=== PATIENT | female | born 1985 | race Caucasian/White ===

== ENCOUNTER 2017-05-13 21:46 | Emergency (ER) | payer BC ==
[2017-05-13] MEDS ORDERED: NS(*) 0.9% 1000 ML BAG 1,000 ML IV ONE (22:03)
--- NOTE | 2017-05-13 22:03 | ER Report ---
History and Physical Time Seen By MD: 21:56 Hx. of Stated Complaint: Pt reporting abdominal pain, nausea and low grade fever for two days. no tylenol or ibuprofin. HPI/ROS CHIEF COMPLAINT: Abdominal pain HISTORY OF PRESENT ILLNESS: This is a 31-year-old female. She has been having abdominal pain for a couple of days, worse tonight. Worsens with movement. Difficult to tell where it is but seems like mainly in the right lower area. Associated nausea but no vomiting. Normal bowels. No dysuria or urinary changes. Last menstrual period a week ago. She reports low-grade fevers. Loss of appetite. REVIEW OF SYSTEMS: Constitutional: As above. ENT: No sore throat. No congestion. Cardiovascular: No chest pain. No palpitations. Respiratory: No cough. No shortness of breath. Gastrointestinal: As above. Genitourinary: As above. Musculoskeletal: No musculoskeletal pain. Allergies: Coded Allergies: No Known Drug Allergies (Unverified , 05/13/17) Home Meds Active Scripts Ondansetron (ZOFRAN ODT) 4 Mg Tab.rapdis, 4 MG PO Q6H Y for NAUSEA/VOMITING, # 20 TAB.JANES 0 Refills Prov:GABBI JACOBS MD 05/14/17 Hydrocodone Bit/Acetaminophen (HYDROCODON-ACETAMINOPHEN 5-325) 1 Each Tablet, 1 EACH PO Q4H Y for PAIN, #12 TAB 0 Refills Prov:GABBI JACOBS MD 05/14/17 Reported Medications Bupropion Hcl (WELLBUTRIN SR) 200 Mg Tablet.er, 250 MG PO QDAY, TAB 05/13/17 Topiramate (TOPAMAX) 50 Mg Tablet, 50 MG PO BID 05/13/17 Past Medical/Surgical History Reviewed Nurses Notes: Yes Constitutional Vital Sign - Last 24 Hours 05/13/17 05/13/17 05/13/17 05/13/17 21:52 21:53 21:56 22:00 Temp 99.4 Pulse 88 98 Resp 18 B/P (MAP) 158/85 (109) 158/85 132/84 (100) Pulse Ox 97 97 O2 Delivery Room Air 05/13/17 05/13/17 05/13/17 05/13/17 22:01 22:06 22:11 22:16 Pulse 91 79 83 Pulse Ox 94 97 97 96 05/13/17 05/13/17//05/13/17 22:20 22:21 22:23 22:25 Temp 98.3 Pulse 83 B/P (MAP) 115/80 (92) 123/85 (98) Pulse Ox 98 05/13/17 05/13/17 05/13/17 05/13/17 22:28 22:33 22:38 22:40 Pulse 90 85 ??? B/P (MAP) ???/??? (1665) Pulse Ox 95 95 05/13/17 05/13/1705/13/05/13/17 22:43 22:48 22:53 22:58 Pulse ? 05/13/17 05/13/17 05/13/17 05/13/17 23:00 23:03 23:08 23:13 Pulse 85 89 83 B/P (MAP) 125/69 (87) Pulse Ox 94 93 95 05/13/17 05/13/17 05/13/17 05/13/17 23:18 23:20 23:23 23:28 Pulse 84 81 75 B/P (MAP) 118/71 (87) Pulse Ox 96 96 95 05/13/17 05/13/1705/13/05/13/17 23:33 23:38 23:40 23:43 Pulse 84 77 86 B/P (MAP) 118/79 (92) Pulse Ox 96 97 98 05/13/1705/13/05/13/05/14/17 23:48 23:53 23:58 00:00 Pulse 94 90 89 B/P (MAP) 112/70 (84) Pulse Ox 97 93 93 05/14/1705/14/28 05//18 05/14/17 00:03 00:08 00:13 00:18 Pulse ??? 78 89 85 Pulse Ox 95 93 94 93 05/14/1705/14/28 05//05/14/17 00:20 00:23 00:28 00:30 Pulse 98 96 89 B/P (MAP) 117/80 (92) Pulse Ox 97 95 95 05/14/1705/14/05/14/05/14/17 00:35 00:40 00:45 00:50 Pulse 93 85 89 B/P (MAP) 116/73 (87) Pulse Ox 94 93 93 93 05/14/17 05/14/17 05/14/17 05/14/17 00:55 01:00 01:05 01:10 Pulse 103 90 92 90 B/P (MAP) 111/70 (84) Pulse Ox 93 91 95 94 05/14/17 01:16 Pulse 82 Resp 16 B/P (MAP) 128/82 (97) Pulse Ox 92 O2 Delivery Room Air Physical Exam General Appearance: The patient is alert. No acute distress. Eyes: Pupils are equal, round. No pallor, injection or icterus. ENT: Mucous membranes are moist. Normal oral mucosa. Respiratory: Lungs are clear to auscultation. Cardiovascular: Regular rate and rhythm. No murmurs, gallops or rubs. No edema. Gastrointestinal: Abdomen is soft, tender in the right lower quadrant. Nondistended. She does have guarding, mild rebound tenderness present in the right lower quadrant. Normal active bowel sounds. No costovertebral angle tenderness with percussion. Neurological: Alert and oriented x3. Skin: Warm and dry. No rashes. DIFFERENTIAL DIAGNOSIS: After history and physical exam, differential diagnosis was considered for abdominal pain including but not limited to appendicitis, ovarian problems, gastroenteritis and urinary tract infection. Medical Decision Making Data Points Result Diagram: 05/13/17220105/13/172201 Laboratory Hematology Test 05/13/17 22:02 Red Blood Count 4.70 M/uL (4.17-5.56) Mean Corpuscular Volume 82.1 fL (80.0-96.0) Mean Corpuscular Hemoglobin 27.3 pg (26.0-33.0) Mean Corpuscular Hemoglobin Concent 33.3 g/dL (32.0-36.0) Red Cell Distribution Width 13.3 % (11.5-14.5) Mean Platelet Volume 8.6 fL (7.2-11.1) Neutrophils (%) (Auto) 33.7 % (39.4-72.5) Lymphocytes (%) (Auto) 59.4 % (17.6-49.6) Monocytes (%) (Auto) 5.3 % (4.1-12.4) Eosinophils (%) (Auto) 0.5 % (0.4-6.7) Basophils (%) (Auto) 1.1 % (0.3-1.4) Nucleated RBC Relative Count (auto) 0.1 /100WBC Neutrophils # (Auto) 1.7 K/uL (2.0-7.4) Lymphocytes # (Auto) 3.0 K/uL (1.3-3.6) Monocytes # (Auto) 0.3 K/uL (0.3-1.0) Eosinophils # (Auto) 0.0 K/uL (0.0-0.5) Basophils # (Auto) 0.1 K/uL (0.0-0.1) Nucleated RBC Absolute Count (auto) 0.01 K/uL Urine Color Yellow Urine Clarity Clear Urine pH 6.0 pH (4.8-9.5) Urine Specific [place] 1.012 Urine Protein Negative mg/dL (NEGATIVE) Urine Glucose (UA) Negative mg/dL (NEGATIVE) Urine Ketones Negative mg/dL (NEGATIVE) Urine Blood Negative (NEGATIVE) Urine Nitrite Negative (NEGATIVE) Urine Bilirubin Negative (NEGATIVE) Urine Urobilinogen Negative mg/dL (0.2-1.9) Urine Leukocyte Esterase Trace (NEGATIVE) Urine RBC 1 /HPF (0-2/HPF) Urine WBC 10 /HPF (0-5/HPF) Urine Squamous Epithelial Cells Many /LPF (</=FEW) Urine Bacteria Few /HPF (NONE-FEW) Urine Mucus None /HPF (NONE-FEW) Sodium Level 139 mmol/L (137-145) Potassium Level 3.1 mmol/L (3.5-5.0) Chloride Level 104 mmol/L (98-107) Carbon Dioxide Level 21 mmol/L (22-31) Blood Urea Nitrogen 8 mg/dl (7-18) Creatinine 0.80 mg/dl (0.52-1.04) Glomerular Filtration Rate Calc > 60.0 Random Glucose 86 mg/dl (75-110) Lactate 0.6 mmol/L (0.7-2.1) Calcium Level 8.9 mg/dl (8.4-10.2) Total Bilirubin 0.4 mg/dl (0.2-1.3) Aspartate Amino Transf (AST/SGOT) 19 U/L (0-35) Alanine Aminotransferase (ALT/SGPT) 23 U/L (0-56) Alkaline Phosphatase 43 U/L (0-126) C-Reactive Protein < 0.5 mg/dl (<1.0) Total Protein 7.0 gm/dl (6.3-8.2) Albumin 4.0 g/dl (3.5-5.0) Amylase Level 76 U/L (0-110) Lipase 127 U/L (23-300) Human Chorionic Gonadotropin, Qual Negative (NEGATIVE) Chemistry Test 05/13/17 22:02 White Blood Count 5.0 k/uL (4.5-11.0) Red Blood Count 4.70 M/uL (4.17-5.56) Hemoglobin 12.8 g/dL (12.0-16.0) Hematocrit 38.6 % (34.0-47.0) Mean Corpuscular Volume 82.1 fL (80.0-96.0) Mean Corpuscular Hemoglobin 27.3 pg (26.0-33.0) Mean Corpuscular Hemoglobin Concent 33.3 g/dL (32.0-36.0) Red Cell Distribution Width 13.3 % (11.5-14.5) Platelet Count 170 K/uL (150-450) Mean Platelet Volume 8.6 fL (7.2-11.1) Neutrophils (%) (Auto) 33.7 % (39.4-72.5) Lymphocytes (%) (Auto) 59.4 % (17.6-49.6) Monocytes (%) (Auto) 5.3 % (4.1-12.4) Eosinophils (%) (Auto) 0.5 % (0.4-6.7) Basophils (%) (Auto) 1.1 % (0.3-1.4) Nucleated RBC Relative Count (auto) 0.1 /100WBC Neutrophils # (Auto) 1.7 K/uL (2.0-7.4) Lymphocytes # (Auto) 3.0 K/uL (1.3-3.6) Monocytes # (Auto) 0.3 K/uL (0.3-1.0) Eosinophils # (Auto) 0.0 K/uL (0.0-0.5) Basophils # (Auto) 0.1 K/uL (0.0-0.1) Nucleated RBC Absolute Count (auto) 0.01 K/uL Urine Color Yellow Urine Clarity Clear Urine pH 6.0 pH (4.8-9.5) Urine Specific [place] 1.012 Urine Protein Negative mg/dL (NEGATIVE) Urine Glucose (UA) Negative mg/dL (NEGATIVE) Urine Ketones Negative mg/dL (NEGATIVE) Urine Blood Negative (NEGATIVE) Urine Nitrite Negative (NEGATIVE) Urine Bilirubin Negative (NEGATIVE) Urine Urobilinogen Negative mg/dL (0.2-1.9) Urine Leukocyte Esterase Trace (NEGATIVE) Urine RBC 1 /HPF (0-2/HPF) Urine WBC 10 /HPF (0-5/HPF) Urine Squamous Epithelial Cells Many /LPF (</=FEW) Urine Bacteria Few /HPF (NONE-FEW) Urine Mucus None /HPF (NONE-FEW) Glomerular Filtration Rate Calc > 60.0 Lactate 0.6 mmol/L (0.7-2.1) Calcium Level 8.9 mg/dl (8.4-10.2) Total Bilirubin 0.4 mg/dl (0.2-1.3) Aspartate Amino Transf (AST/SGOT) 19 U/L (0-35) Alanine Aminotransferase (ALT/SGPT) 23 U/L (0-56) Alkaline Phosphatase 43 U/L (0-126) C-Reactive Protein < 0.5 mg/dl (<1.0) Total Protein 7.0 gm/dl (6.3-8.2) Albumin 4.0 g/dl (3.5-5.0) Amylase Level 76 U/L (0-110) Lipase 127 U/L (23-300) Human Chorionic Gonadotropin, Qual Negative (NEGATIVE) Urinalysis Test 05/13/17 22:02 Urine Color Yellow Urine Clarity Clear Urine pH 6.0 pH (4.8-9.5) Urine Specific [place] 1.012 Urine Protein Negative mg/dL (NEGATIVE) Urine Glucose (UA) Negative mg/dL (NEGATIVE) Urine Ketones Negative mg/dL (NEGATIVE) Urine Blood Negative (NEGATIVE) Urine Nitrite Negative (NEGATIVE) Urine Bilirubin Negative (NEGATIVE) Urine Urobilinogen Negative mg/dL (0.2-1.9) Urine Leukocyte Esterase Trace (NEGATIVE) Urine RBC 1 /HPF (0-2/HPF) Urine WBC 10 /HPF (0-5/HPF) Urine Squamous Epithelial Cells Many /LPF (</=FEW) Urine Bacteria Few /HPF (NONE-FEW) Urine Mucus None /HPF (NONE-FEW) EKG/Imaging EKG Interpretation 12 lead EKG: Rhythm: Normal sinus rhythm, rate 80 [place]: Left axis QRS: Incomplete right bundle branch block ST segments: No ST elevation or depression. No T-wave inversions or flattening. Imaging ABDOMEN/PELVIS WITH CONTRAST COMPARISONS: None. ADDITIONAL PERTINENT HISTORY: Right lower quadrant pain with nausea TECHNIQUE: Multiple axial images were obtained from the lung bases through the lesser trochanters before and after the IV administration of IV contrast. One of the following dose optimization techniques was utilized in the performance of this exam: Automated exposure control; adjustment of the mA and/or kV according to the patient's size; or use of an iterative reconstruction technique. Specific details can be referenced in the facility's radiology CT exam operational policy. CONTRAST: 75 ml of Isovue-370 FINDINGS: Lung bases: Negative. Free air and free fluid: None. Liver: Negative. Spleen: Negative. Kidneys, ureters and urinary bladder: Findings of an extrarenal pelvis involving the left kidney. Small simple appearing cyst involving the upper pole of the left kidney. Small simple appearing cyst involving the midportion of the right kidney. Adrenal glands: Negative. Pancreas: Negative. Gallbladder: Negative. Bowel and mesentery: Increased stool within the rectum and sigmoid colon compatible with underlying constipation. No bowel obstruction. Normal-appearing appendix in the right lower quadrant.. Pelvic contents: IUD within the endometrial cavity. Lymph node assessment: Negative. Retroperitoneum: Negative. Abdominal vasculature: Negative. Surrounding soft tissues: Negative. Osseous structures: Negative. IMPRESSION: 1. Findings of underlying constipation. 2. No other acute intra-abdominal or intrapelvic process. Specifically no evidence of appendicitis on today's exam. Report Dictated By: Zia Colvin MD at 05/13/2017 11:09 PM Ultrasound of the pelvis: Indication: Right lower quadrant and pelvic pain. Technique: Transabdominal and transvaginal imaging, with Doppler. Comparison: CT scan from earlier the same day. Uterus: Normal in size, shape, and echogenicity, measuring approximately 7.1 x 5.0 x 3.6 cm. There is no evidence of uterine mass, calcification, or fluid. An IUD appears to be in satisfactory orientation within the endometrial cavity. The endometrial stripe measures 4 mm. Right ovary/adnexa: The right ovary measures 4.7 x 3.4 x 2.6 cm. Multiple small follicles are present. Doppler images demonstrate no evidence of torsion. No adnexal mass or fluid collection is identified. Left ovary/adnexa: The left ovary measures 5.0 x 4.0 x 2.6 cm. Multiple small follicles are present. Doppler images demonstrate no evidence of torsion. No adnexal mass or fluid collection is identified. Free fluid: None seen. IMPRESSION: Unremarkable study. An IUD appears to be in satisfactory orientation within the endometrial cavity. There are no signs of ovarian or adnexal abnormality. Report Dictated By: Harlan Graves MD at 05/14/2017 12:39 AM ED Course/Re-evaluation Clinical Indication for ER IV: Hydration, IV Access ED Course Some improvement in symptoms with Morphine 4mg IV and Zofran 4mg IV. Labs obtained which were unremarkable. Normal urinalysis. CT scan showed no acute abnormality. Ultrasound of the pelvis ordered and another Morphine 4mg IV given. Ultrasound negative. Reviewed all the findings with the patient. Recommended follow-up with primary care and possibly seeing gastroenterology for further evaluation. Lortab and Zofran take home packs and prescriptions provided. Decision to Disposition Date: May 14, 2017 Decision to Disposition Time: 01:11 Depart Departure Latest Vital Signs Vital Signs Date Time Temp Pulse Resp B/P (MAP) Pulse Ox O2 Delivery O2 Flow Rate FiO2 05/14/17 01:16 82 16 128/82 (97) 92 Room Air 05/13/17 22:25 98.3 Impression: Primary Impression: Abdominal pain Condition: Improved Disposition: HOME OR SELF-CARE New Scripts Ondansetron (ZOFRAN ODT) 4 Mg Tab.rapdis 4 MG PO Q6H Y for NAUSEA/VOMITING, #20 TAB.JANES 0 Refills Prov: GABBI JACOBS MD 05/14/17 Hydrocodone Bit/Acetaminophen (HYDROCODON-ACETAMINOPHEN 5-325) 1 Each Tablet 1 EACH PO Q4H Y for PAIN, #12 TAB 0 Refills Prov: GABBI JACOBS MD 05/14/17 Patient Instructions: Abdominal Pain (ED) Additional Instructions: The work-up tonight for abdominal pain did not reveal the cause of pain, but there was no cause that is serious or life threatening. We recommend follow-up with your regular doctor for re-evaluation. If pain persists, further evaluation with a gastrointestinal specialist or general surgeon may be needed. Further testing such as colonoscopy or upper endoscopy may be needed and further lab tests for other chronic conditions can be done. Take Lortab 5/325, one every 4 hours as needed for pain. Take Ibuprofen 200mg over the counter tablets, take 4 tablets every 8 hours as needed for pain. Take Zofran 4mg, one every 6 hours as needed for nausea. Problem Qualifiers Primary Impression: Abdominal pain Abdominal location: right lower quadrant Qualified Codes: R10.31 - Right lower quadrant pain GABBI JACOBS MD May 13, 2017 22:03
[2017-05-13] MEDS ORDERED: PANTOPRAZOLE SOD 40 MG IV VIAL IVP ONE (22:05)
[2017-05-13] MEDS ORDERED: MORPHINE 4 MG/ML SDV IVP ONE ×2 (22:05→23:50)
[2017-05-13] MEDS ORDERED: ONDANSETRON 4 MG/2 ML VIAL IVP ONE (22:05)
[2017-05-13 22:16] LABS: PLATELET COUNT, AUTOMATED 170 K/uL (150-450)
[2017-05-13] MEDS ORDERED: IOPAMIDOL 76% 75 ML INFUS BTL 75 ML ONE (22:42)
[2017-05-13] MEDS ORDERED: NS 0.9% 20 ML SDV 60 ML ONE (22:43)
[2017-05-13] MEDS ORDERED: TOPI-120 PO (23:12)
[2017-05-13] MEDS ORDERED: BUPR200T18 PO (23:12)
--- NOTE | 2017-05-13 23:19 | RADIOLOGY IMAGING REPORT ---
FACILITY: [facility] PATIENT NAME: Dinorah Disla : 1985 MR: [id number] V: [id number] EXAM DATE: ORDERING PHYSICIAN: GABBI JACOBS TECHNOLOGIST: Location: [facility] [place] Patient: Dinorah Disla : 1985 Visit/Account:[id number] Date of Sevice: 05/13/2017 ABDOMEN/PELVIS WITH CONTRAST COMPARISONS: None. ADDITIONAL PERTINENT HISTORY: Right lower quadrant pain with nausea TECHNIQUE: Multiple axial images were obtained from the lung bases through the lesser trochanters bef ore and after the IV administration of IV contrast. One of the following dose optimization technique s was utilized in the performance of this exam: Automated exposure control; adjustment of the mA and/ or kV according to the patient's size; or use of an iterative reconstruction technique. Specific de tails can be referenced in the facility's radiology CT exam operational policy. CONTRAST: 75 ml of Isovue-370 FINDINGS: Lung bases: Negative. Free air and free fluid: None. Liver: Negative. Spleen: Negative. Kidneys, ureters and urinary bladder: Findings of an extrarenal pelvis involving the left kidney. Sma ll simple appearing cyst involving the upper pole of the left kidney. Small simple appearing cyst inv olving the midportion of the right kidney. Adrenal glands: Negative. Pancreas: Negative. Gallbladder: Negative. Bowel and mesentery: Increased stool within the rectum and sigmoid colon compatible with underlying c onstipation. No bowel obstruction. Normal-appearing appendix in the right lower quadrant.. Pelvic contents: IUD within the endometrial cavity. Lymph node assessment: Negative. Retroperitoneum: Negative. Abdominal vasculature: Negative. Surrounding soft tissues: Negative. Osseous structures: Negative. IMPRESSION: 1. Findings of underlying constipation. 2. No other acute intra-abdominal or intrapelvic process. Specifically no evidence of appendicitis on today's exam. Report Dictated By: Zia Colvin MD at 05/13/2017 11:09 PM Report E-Signed By: Zia Colvin MD at 05/13/2017 11:15 PM WSN:[id number]
--- NOTE | 2017-05-14 00:49 | RADIOLOGY IMAGING REPORT ---
FACILITY: [facility] PATIENT NAME: Dinorah Disla : 1985 MR: [id number] V: [id number] EXAM DATE: ORDERING PHYSICIAN: GABBI JACOBS TECHNOLOGIST: [facility] Patient: Dinorah Disla : 1985 Visit/Account:[id number] Date of Sevice: 05/13/2017 Ultrasound of the pelvis: Indication: Right lower quadrant and pelvic pain. Technique: Transabdominal and transvaginal imaging, with Doppler. Comparison: CT scan from earlier the same day. Uterus: Normal in size, shape, and echogenicity, measuring approximately 7.1 x 5.0 x 3.6 cm. There is no evidence of uterine mass, calcification, or fluid. An IUD appears to be in satisfactory orientati on within the endometrial cavity. The endometrial stripe measures 4 mm. Right ovary/adnexa: The right ovary measures 4.7 x 3.4 x 2.6 cm. Multiple small follicles are present . Doppler images demonstrate no evidence of torsion. No adnexal mass or fluid collection is identifie d. Left ovary/adnexa: The left ovary measures 5.0 x 4.0 x 2.6 cm. Multiple small follicles are present. Doppler images demonstrate no evidence of torsion. No adnexal mass or fluid collection is identified. Free fluid: None seen. IMPRESSION: Unremarkable study. An IUD appears to be in satisfactory orientation within the endometri al cavity. There are no signs of ovarian or adnexal abnormality. Report Dictated By: Harlan Graves MD at 05/14/2017 12:39 AM Report E-Signed By: Harlan Graves MD at 05/14/2017 12:45 AM WSN:[id number]
[2017-05-14] MEDS ORDERED: ACET/HYDROC 5/325MG TH ER ONLY 2 TAB/BOTTLE PO ONE (01:10)
[2017-05-14] MEDS ORDERED: ONDANSETRON 4 MG ODT TH SL ONE (01:10)
[2017-05-14] MEDS ORDERED: ONDA4TAB PO (01:15)
[2017-05-14] MEDS ORDERED: LOR5/325 PO (01:15)
[2017-05-14 01:16] VITALS: BP 128/82
== END 2017-05-14 01:20 | disposition home or self-care (01) ==
LOC: ER 22:50
DX: R10.31 Right lower quadrant pain (principal)
CPT/HCPCS: 74177; 76856; 81001; 82150; 83605; 83690; 84703; 85025; 86140; 96361; 96374; 96375; 96376; 99284; C9113; J2270; J2405; J7030; J7050; Q9967; S0119; 82040; 82247; 82310; 82374; 82435; 82565; 82947; 84075; 84132; 84155; 84295; 84450; 84460; 84520